=== PATIENT | male | born 1975 | race African-American/Black ===

== ENCOUNTER 2016-11-06 07:06 | Emergency (ER) | payer BC ==
[~2016-11-06] VITALS: Ht 190.5 cm; Wt 75.8 kg
[~2016-11-06 07:06] MED LIST: PYRIDIUM200 MG PO
[2016-11-06 09:08] LABS: HEMATOCRIT 43.8 % (38.0-50.0); MCH 30.8 PG (29.0-34.0); MCHC 33.1 G/DL (30.0-36.0); MEAN PLAT.VOLUME 10.7 uM^3 (9.0-12.4); PLATELET COUNT 289 K/uL (156-360); RBC DIS.WIDTH-SD 39.7 % (39-53); RED BLOOD COUNT 4.71 M/uL (4.00-5.50); WHITE BLOOD COUNT 5.8 K/uL (4.1-10.2)
[2016-11-06 09:19] LABS: CHLORIDE 106 mEq/L (99-109); POTASSIUM 3.9 mEq/L (3.7-5.4); SODIUM 141 mEq/L (136-147)
[2016-11-06 09:20] LABS: D-DIMER ELISA < 0.15 mg/L FEU (< 0.57)
[2016-11-06 09:21] LABS: GLUCOSE 88 mg/dL (70-99)
[2016-11-06 09:23] LABS: ANION GAP 7 MEQ/L (2-14)
[2016-11-06 09:25] LABS: GFR ESTIMATE (CALCULATED) > 59 mL/min/
[2016-11-06 09:26] LABS: UREA NITROGEN (BUN) 11 mg/dL (9-23)
[2016-11-06 09:29] LABS: TROP-I INTERPRETATION NEGATIVE; TROPONIN-I < 0.01 ng/mL (0.0-0.30)
[2016-11-06] MEDS ORDERED: ULTRAM50 MG PO (11:53)
[2016-11-06 12:06] VITALS: BP 134/92
== END 2016-11-06 13:41 | disposition home or self-care (01) ==
LOC: EME 07:06
PROVIDERS: Emergency Medicine
DX: R07.89 Other chest pain (principal); M94.0 Chondrocostal junction syndrome [Tietze]; F17.200 Nicotine dependence, unspecified, uncomplicated; Z71.6 Tobacco abuse counseling
CPT/HCPCS: 71020; 71275; 80048; 84484; 85027; 85379; 93005; 99281; 99285; J2270; J2405